=== PATIENT | male | born 1980 | race Caucasian/White ===

== ENCOUNTER → 2020-07-03 11:03 | Outpatient (CLI) | payer OTHER, SELFPAY ==
--- NOTE | ~2020-07-03 | XR_ITS ---
EXAMINATION: XR lumbar spine 2-3V DATE: 07/03/2020 11:24 INDICATION: Low back pain TECHNIQUE: Anteroposterior and lateral views of the lumbar spine, and cone-down lateral view of the l umbosacral junction were obtained. COMPARISON: MRI, 01/21/2016 FINDINGS: There is unchanged mild loss of intervertebral disc space height at L5-S1. The vertebral pebbles dy heights are maintained. There is no fracture. A neurostimulator device is implanted in the subcuta neous tissues of the right lower back. Its leads enter the central spinal canal at the level of T11-1 2 and courses superiorly beyond the upper margin of the radiograph. IMPRESSION: 1. Mild lumbar spondylosis without acute findings or significant interval change. Reviewed, dictated and finalized at location A. IMPRESSION: 1. Mild lumbar spondylosis without acute findings or significant interval [place]
== END ==
PROVIDERS: PCP Family Medicine; Visit Provider Physician Assistant
DX: M47.816 Spondylosis without myelopathy or radiculopathy, lumbar region (principal); Z96.82 Presence of neurostimulator
CPT/HCPCS: 72100

== ENCOUNTER 2020-10-15 15:58 | Emergency (ER) | payer OTHER, SELFPAY ==
--- NOTE | ~2020-10-15 | XR_ITS ---
EXAMINATION: XR foot RT min 3V DATE: 10/15/2020 16:21 INDICATION: Right foot injury and pain. TECHNIQUE: 4 views of right foot were obtained. COMPARISON: None. FINDINGS: Bone alignment is normal. No fracture. Joint spaces are normal. IMPRESSION: 1. No fracture. Reviewed, dictated and finalized at location B. IMPRESSION: 1. No fracture.
[2020-10-15 16:10] VITALS: BP 134/84; PULSE 76; RESP 20; TEMP 36.9; O2SAT 98
[2020-10-15 18:13] VITALS: BP 138/78; PULSE 67; RESP 20; TEMP 36.7; O2SAT 98
--- NOTE | 2020-10-15 18:14 | PC.NURSE ---
PT STATES HE IS LEAVING. NOTIFIED OF RISKS OF LEAVING BEFORE SEEING MD, VERBALIZES UNDERSTANDING. PT AMBULATED TO EXIT WITH STEADY GAIT.
== END 2020-10-15 18:55 | disposition left against medical advice (07) ==
PROVIDERS: Emergency Provider Emergency Medicine; PCP Family Medicine
DX: M79.671 Pain in right foot (principal)
CPT/HCPCS: 73630; 99199

== ENCOUNTER 2022-01-22 12:01 | Outpatient (CLI) | payer OTHER, SELFPAY ==
--- NOTE | ~2022-01-22 | XR_ITS ---
EXAM: XR cervical spine 4-5V DATE: 01/22/2022 12:17 HISTORY: M54.2 - Cervicalgia, limited rom, no recent trauma . COMPARISON: 06/01/2015. FINDINGS: Craniocervical association and atlantoaxial joint are aligned. Mild degenerative change at the atlantoaxial joint. No prevertebral soft tissue swelling. Vertebral bodies are aligned. Vertebra l body heights are maintained. Normal disc spaces. Minimal multilevel marginal osteophytosis. Mild mu ltilevel facet hypertrophy. IMPRESSION: Mild multilevel degenerative disc disease and facet arthropathy. Reviewed, dictated and finalized at location K. PROCESS ENGINEER
== END 2022-01-22 12:02 | disposition home or self-care (01) ==
LOC: ANHIMG 12:03
PROVIDERS: PCP Family Medicine; Visit Provider Physician Assistant
DX: M50.30 Other cervical disc degeneration, unspecified cervical region (principal)
CPT/HCPCS: 72050

== ENCOUNTER 2022-03-31 08:45 | Outpatient (RCR) | payer OTHER, SELFPAY ==
--- NOTE | 2022-02-12 14:45 | PTOPEVAL1 ---
Assessment and note entered by Sabi Saunders DPT Evaluation Information Assessment Status Evaluation Subjective Information Pt reports stiffness in his neck, and sometimes he is unable to move for a few days. Highest pain 10 /10 and lowest 2/10. N/t radiates down right arm to elbow and forearm. Difficulty turning his head to drive, bending over to put socks or shoes on or dressing. When pain is very bad he reports he cannot move at all and has difficulty moving his arm to feed himself. Pain has progressed over 10 years, especially in the past few months. Relates original pain to falling out of a helicopter and other head injuries. Retired marine. Recently saw the PA and states he was told he has nerve damage (has spinal cord stimulator implant in his back). Plan is currently for therapy, has had x-rays but no MRI until therapy is done. Returns to [place] on 03/04/21. Pt is not working currently due to his neck pain. 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 Has had PT before but was focused more on his back , tried chiropractor as well which also focused more on his back. Taking vicodin, flexeril, and gabapentin currently. Reported Pain Level Pain Score 3: Self Report Assessment PT Clinical Summary The patient is presenting to skilled therapy with a 10 year history of progressing cervical radiating pain. He presents with significantly decreased range of motion, postural impairments and signs of neural tension which are contributing to his pain and difficulty with most activities including driving and dressing. He will highly benefit from therapy to address his impairments and safely reduce pain and dysfunction. Plan of Care Interventions Hot Pack/Cold Pack,Manual Therapy,Mechanical Traction,Neuro Re-education,Patient/Caregiver Education,Therapeutic Activities,Therapeutic Exercise,Self-Care/Home Management,Ultrasound PT Services Indicated Yes Treatment Frequency and 2 times a week for 4 weeks Duration These treatments will address the objective and functional deficits as defined above. The patient will be advanced safely and appropriately in order for the patient to progress towards his/her prior level of function. Additional exercises will be introduced and as well as a comprehensive home exercise program upon discharge, if needed, ?to ensure carryover of functional gains achieved in the clinic. This treatment plan has been reviewed and agreement upon by the patient.
--- NOTE | 2022-03-13 14:09 | PTOPPROG ---
Assessment and note entered by Sabi Saunders DPT Evaluation Information Assessment Status Progress Subjective Information Highest pain in last week 07/09 and lowest 04/11. Pain increases with holding his head in certain postures or reaching down to put socks on. Reports improvements with his pain overall. Returns to [place] on Apr 09 and will have MRI in between. Assessment PT Clinical Summary The patient has made good progress in therapy. He reports greatly decreased pain overall and demonstrates significant improvements in his cervical range of motion. He continues to demonstrate flexibility impairments and reports pain with prolonged postures or bending forward like for dressing. He will benefit from further therapy to continue addressing pain and dysfunction. Plan of Care Interventions Hot Pack/Cold Pack,Manual Therapy,Neuro Re- education,Patient/Caregiver Education,Therapeutic Activities,Therapeutic Exercise,Self-Care/Home Management PT Services Indicated Yes Treatment Frequency and 1 time a week for 4 weeks Duration These treatments will address the objective and functional deficits as defined above. The patient will be advanced safely and appropriately in order for the patient to progress towards his/her prior level of function. Additional exercises will be introduced and as well as a comprehensive home exercise program upon discharge, if needed, ?to ensure carryover of functional gains achieved in the clinic. This treatment plan has been reviewed and agreement upon by the patient.
--- NOTE | 2022-04-10 14:00 | PCPTNOTE ---
Patient did not show up for appointment 04/10/22. The patient was called but voicemail was full.
--- NOTE | 2022-04-28 08:57 | PTOPDC ---
Assessment and note entered by Sabi Saunders DPT Evaluation Information Assessment Status Progress Subjective Information Patient self discharged.
== END 2022-04-28 08:17 | disposition home or self-care (01) ==
LOC: ANHPT 08:45
PROVIDERS: PCP Family Medicine; Visit Provider Physician Assistant
DX: M54.2 Cervicalgia (principal)
CPT/HCPCS: 97110; 97140; 97162; 99199

== ENCOUNTER 2024-11-29 08:43 | Outpatient (CLI) | payer OTHER, SELFPAY ==
--- OUTSIDE RECORDS SUMMARY | 2024-11-29 08:59 | XMS_ITS | Clinical Summary ---
Author Organization [facility] Address [address] [place] [address] Care Team Providers Care Manager Quality Systems Name Role Phone [facility] [place] [facility] Primary Care Provider Allergies No known active allergies Medications acetaminophen (TYLENOL) 325 MG tablet 2 tablets (650 mg total) by PO/Per Tube route every 6 (six) hours. 0 3 Active Acidophilus Lactobacillus capsule Administer 1 each per tube 3 (three) times a day. 3 Active atorvastatin (LIPITOR) 10 MG tablet 1 tablet (10 mg total) by PO/Per Tube route in the morning. 0 3 Active cloNIDine (CATAPRES) 0.2 MG tablet 1 tablet (0.2 mg total) by Enteral route in the morning and 1 tablet (0.2 mg total) before bedtime. 0 3 Active gabapentin (NEURONTIN) 300 MG capsule 1 capsule (300 mg total) by Enteral route 3 (three) times a day. 0 3 Active hydrOXYzine (ATARAX) 50 MG tablet 1 tablet (50 mg total) by PO/Per Tube route 3 (three) times a day as needed for anxiety. 0 3 Active melatonin tablet 2 tablets (6 mg total) by PO/Per Tube route nightly. 0 3 Active methocarbamol (ROBAXIN) 750 MG tablet 1 tablet (750 mg total) by Enteral route every 6 (six) hours. 0 3 Active methylphenidate (RITALIN) 10 MG tablet 1 tablet (10 mg total) by Enteral route in the morning and 1 tablet (10 mg total) before bedtime. Max Daily Amount: 20 mg. 0 3 Active nicotine (NICODERM CQ) 14 MG/24HR Place 1 patch (14 mg total) on the skin in the morning. 0 3 Active Omeprazole ODT (Prilosec OTC) 20 MG disintegrating tablet 1 tablet (20 mg total) by PO/Per Tube route in the morning. 30 tablet 3 Active polyethylene glycol (MIRALAX) 17 g packet Take 17 g by mouth 2 (two) times a day as needed (Constipation) . 10 each 3 Active senna-docusate (SENOKOT-S) 8.6-50 MG 1 tablet by PO/Per Tube route in the morning and 1 tablet before bedtime. 0 3 Active traMADol (ULTRAM) 50 MG tabletIndications: Pain 1 tablet (50 mg total) by Enteral route every 6 (six) hours Indications: Pain. 0 3 Active traZODone (DESYREL) 50 MG tablet 1 tablet (50 mg total) by Enteral route nightly. 0 3 Active Active Problems Problem Noted Date Diagnosed Date Traumatic brain injury 05/28/2022 Immunizations Immunization Administration Dates Next Due Blu Sars-cov-2 Vaccination 12/21/2020 Tdap 05/01/2022 Social History Tobacco Use Types Packs/Day Years Used Date Smoking Tobacco: Every Day Cigarettes 1 29 Smokeless Tobacco: Never Tobacco Cessation:Ready to Q uit: Not Asked; Counseling Given: Not Answered Alcohol Use Standard Drinks/Week Comments Yes 0 (1 standard drink = 0.6 oz pur e alcohol) social drinker Sex and Gender Information Value Date Recorded Sex Assigned at Not on file Legal Sex Male 9:55 AM EDT Gender Identity Not on file Sexual Orientation Not on file Last Filed Vital Signs Vital Sign Reading Time Taken Comments Blood Pressure 131/79 06/27/2022 7:30 AM CDT Pulse 86 06/27/2022 7:30 AM CDT Temperature 36.6 C (97.9 F) 06/27/2022 7:30 AM CDT Respiratory Rate 16 06/27/2022 7:30 AM CDT Oxygen Saturation 100% 06/27/2022 7:30 AM CDT Inhaled Oxygen Concentration - - Weight 76.7 kg (169 lb) 06/25/2022 9:23 AM CDT Height 175.3 cm (5' 9) 06/25/2022 9:23 AM CDT Body Mass Index 24.96 06/25/2022 9:23 AM CDT Plan of Treatment Health Maintenance Due Date Last Done Comments CT Colonography 1979 Colonoscopy 1979 Colorectal Cancer Screening 1979 FIT-DNA (Cologuard) 1979 FIT 1979 FOBT 1979 Sigmoidoscopy 1979 Annual Visit Topic 01/02/1980 Hepatitis C Screening 1997 Pneumococcal Vaccine: Pediatrics (0 to 5 years) and At-Risk Patients (6 to 64 Years) (1 of 4 - PCV) 1998 IPV Vaccines (2 of 3 - Adult catch-up series) 09/06/1998 08/09/1998 HPV Vaccines (1 - 3-dose SCDM series) 2006 DTaP/Tdap/Td Vaccines (3 - Td or Tdap) 05/01/2032 05/01/2022, 08/10/2013, 09/26/2008, Additional history exists MMR Vaccines Completed 06/26/1998 Hepatitis A Vaccines Aged Out 02/04/1999, 01/05/1999, 08/09/1998 No longer eligible based on patient's age to complete this topic Hepatitis B Vaccines Completed 07/11/2005, 01/20/2005, 12/06/2004 HIB Vaccines Aged Out No longer eligi ble based on patient's age to complete this topic Meningococcal Vaccine Aged Out No martina tila eligible based on patient's age to complete this topic Advance Directives * Full Resuscitation (Latest Code Status on File) Date Activated Date Inactivated Comments 05/28/2022 10:57 AM 06/27/2022 12:00 PM Care Teams Manager Quality Systems Relationship Specialty Start Date End Date [facility] [place] [address] [place] [address] PCP - General 05/28/22
--- OUTSIDE RECORDS SUMMARY | 2024-11-29 08:59 | XMS_ITS | Encounter Summary ---
Author Organization [facility] Address [address] [place] [address] Care Team Providers Care Welding Equipment Repairer Supervisor Name Role Phone Alex Mitchell MD Primary Care Provider [phone] Encounter Details Date Type Department Care Team (Late st Contact Info) Description 05/13/2022 Ophth Exam [facility] [address] [place] [id number] Shimon Leon MD [address] [facility] [address] [place] [id number] Social History Tobacco Use Types Packs/Day Years Used Date Smoking Tobacco: Never Smokeless Tobacco: Never Comments:unable to assess d/ t intubation and sedation Alcohol Use Standard Drinks/Week Comments Never 0 (1 standard drink = 0.6 oz pure alcohol) unable to assess d/t intubation and sedation AUDIT-C Answer Date Recorded Q1: How often do you have a drink containing alcohol? Never 05/01/2022 Q2: How many drinks containi ng alcohol do you have on a typical day when you are drinking? Patient does not drink Q3: How often do you have si x or more drinks on one occasion? 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 Answer Date of Assessment Author No 05/01/2022 5:50 AM Daysi Pagan RN * Is person blind or have serious difficulty seeing? Answer Date of Assessment Author No 05/01/2022 5:50 AM Daysi Pagan RN * Does person have serious difficulty walking/climbing stairs? Answer Date of Assessment Author No 05/01/2022 5:50 AM Daysi Pagan RN * Does person have difficulty dressing/bathing? Answer Date of Assessment Author No 05/01/2022 5:50 AM Daysi Pagan RN * Does person have difficulty doing errands alone? Answer Date of Assessment Author No 05/01/2022 5:50 AM Daysi Pagan RN documented as of this encounter Mental Status * Does person have difficulty concentrating/remembering/making decisions? Answer Entry Date Author No 05/01/2022 5:50 AM Daysi Pagan RN documented in this encounter Plan of Treatment Not on file documented as of this encounter Visit Diagnoses Not on filedocumented in this encounter Care Teams Welding Equipment Repairer Supervisor Relationship Specialty Start Date End Date Alex Mitchell MD [address] [place] [address] PCP - General Family Medicine 04/30/22 documented as of this encounter
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
--- OUTSIDE RECORDS SUMMARY | 2024-11-29 08:59 | XMS_ITS | Encounter Summary ---
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 Never 05/01/2022 5:00 AM Rosmery Pagan RN Q2: How many drinks containing alcohol do you have on a typical day when you are drinking? Patient does not drink 05/01/2022 5:00 AM Rosmery Pagan RN Q3: How often do you have six or more drinks on one occasion? Never 05/01/2022 5:00 AM Rosmery Pagan RN * Audit-C Score Answer Date of Assessment Author 0 05/01/2022 5:00 AM Daysi Pagan RN * Is person deaf or have serious [...] on filedocumented in this encounter Care Teams Senior Datastage Developer Relationship Specialty Start Date End Date Alex Mitchell MD [address] [place] [address] PCP - General Family Medicine 04/30/22 documented as of this encounter
--- OUTSIDE RECORDS SUMMARY | 2024-11-29 08:59 | XMS_ITS | Encounter Summary ---
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
== END 2024-11-29 08:44 | disposition home or self-care (01) ==
LOC: ANHAUDIO 08:44
PROVIDERS: PCP Family Medicine; Visit Provider Family Medicine
DX: H91.93 Unspecified hearing loss, bilateral (principal); H93.13 Tinnitus, bilateral
CPT/HCPCS: 92557; 92567